=== PATIENT | male | born 1950 | race Caucasian/White ===

== ENCOUNTER 2025-05-19 13:15 | Inpatient (IN) | payer OTHER, MEDICARE ==
[~2025-05-19] VITALS: Ht 165.1 cm; Wt 99.8 kg
[~2025-05-19 13:15] MED LIST: CLOP75TA15 PO; ROSU10TA2 PO; VERA180T25 PO
[2025-05-19] MEDS: Magnesium 1GM/D5W 100ML PREMIX 200 ML IV ONE (13:30)
[2025-05-19] MEDS ORDERED: ALBUTEROL FS 2.5 MG/3 ML VIAL.NEB ONE (13:32)
[2025-05-19] MEDS ORDERED: IPRATROPIUM NEB FS 0.5 MG/2.5 ML AMPUL.NEB ONE (13:32)
[2025-05-19 13:36] VITALS: O2SAT 94
[2025-05-19] MEDS: ALBUTEROL FS 2.5 MG/3 ML VIAL.NEB NEB ONE (13:36)
[2025-05-19] MEDS: IPRATROPIUM NEB FS 0.5 MG/2.5 ML AMPUL.NEB NEB ONE (13:36)
[2025-05-19 13:46] LABS: PLATELET COUNT (AUTO) 235 K/uL (150-450); RED BLOOD CELL COUNT(AUTO) 4.03 MIL/uL (4.5-6.0); RED CELL DISTRIBUTION WIDTH 12.4 % (11.5-15.0); WHITE BLOOD COUNT (AUTO) 10.6 K/uL (4.3-11.0)
[2025-05-19 13:54] VITALS: O2SAT 98
[2025-05-19] MEDS ORDERED: Magnesium 1GM/D5W 100ML PREMIX 200 ML IV ONE (13:55)
[2025-05-19 14:00] LABS: CALCIUM, SERUM 8.8 mg/dL (8.5-10.1); CREATININE 2.1 mg/dL (0.6-1.3); SODIUM SERUM 145 mmol/L (136-145); UREA NITROGEN, BLOOD 27 mg/dL (7-18)
[2025-05-19] MEDS ORDERED: DEXL30CA3 PO (14:07)
[2025-05-19] MEDS ORDERED: ERGO500040 PO (14:07)
[2025-05-19] MEDS ORDERED: FLUT1DIS3 IH (14:07)
[2025-05-19] MEDS ORDERED: METO25TA6 PO (14:07)
[2025-05-19] MEDS ORDERED: MONT10TA22 PO (14:07)
[2025-05-19] MEDS ORDERED: TAMS-12 PO (14:07)
[2025-05-19] MEDS ORDERED: INSU3INS8 SQ (14:07)
[2025-05-19] MEDS ORDERED: FURO-144 PO (14:07)
[2025-05-19] MEDS ORDERED: CLON0.2T PO (14:07)
[2025-05-19] MEDS ORDERED: METF-440 PO (14:07)
[2025-05-19] MEDS ORDERED: HYDR-4075 PO (14:07)
[2025-05-19] MEDS ORDERED: FLUT16SP NS (14:07)
[2025-05-19] MEDS ORDERED: IBUP-1953 PO (14:07)
[2025-05-19 14:10] LABS: LACTIC ACID 2.4 mmol/L (0.4-2.0)
[2025-05-19] MEDS: CEFTRIAXONE 1 G in IV D5W 50 ML IV ONE (14:30)
[2025-05-19] MEDS: IV NS 0.9% 1,000 ML BAG IV ONE (14:30)
[2025-05-19] MEDS: AZITHROMYCIN 500 MG in IV D5W 250 ML IV ONE (15:30)
[2025-05-19] MEDS ORDERED: Z GUARD REMEDY 4 OZ OINT TP PRN ×2 (16:00→18:00)
[2025-05-19] MEDS ORDERED: MAG HYDROX/AL HYDROX/SIMETH 30 ML UDC PO PRN ×2 (16:00→18:00)
[2025-05-19] MEDS ORDERED: ONDANSETRON HCL/PF 4 MG/2 ML VIAL IVP PRN ×2 (16:00→18:00)
[2025-05-19] MEDS ORDERED: ACETAMINOPHEN 325 MG TABLET PO PRN ×2 (16:00→18:00)
[2025-05-19] MEDS ORDERED: MAGNESIUM HYDROXIDE 30 ML UDC PO PRN ×2 (16:00→18:00)
[2025-05-19] MEDS ORDERED: ENOXAPARIN SODIUM 30 MG/0.3 ML DISP.SYRIN SQ SCH (16:30)
[2025-05-19] MEDS ORDERED: DEXTROSE 50%-WATER 50 ML DISP.SYRIN IV PRN ×2 (17:00→18:00)
[2025-05-19] MEDS ORDERED: INSULIN REGULAR, HUMAN 100 UNIT/ML 3 ML VIAL SQ PRN (17:00)
[2025-05-19] MEDS ORDERED: FLUTICASONE/SALMETEROL 1 DISK IH SCH (17:00)
[2025-05-19 17:10] LABS: LACTIC ACID REFLEX 3.4 mmol/L (0.4-1.9)
[2025-05-19] MEDS ORDERED: BLOOD SUGAR DIAGNOSTIC 1 EACH STRIP IN SCH (17:30)
[2025-05-19] MEDS: ENOXAPARIN SODIUM 30 MG/0.3 ML DISP.SYRIN SQ SCH (18:53)
[2025-05-19] MEDS ORDERED: IPRATROPIUM NEB FS 0.5 MG/2.5 ML AMPUL.NEB NEB SCH (19:30)
[2025-05-19] MEDS ORDERED: LEVALBUTEROL HCL NEB 1.25 MG/0.5 ML VIAL.NEB NEB SCH (19:30)
[2025-05-19 20:00] VITALS: BP 123/73; TEMP 98.2; O2SAT 100
[2025-05-19 21:24] VITALS: O2SAT 98
[2025-05-19] MEDS: IPRATROPIUM NEB FS 0.5 MG/2.5 ML AMPUL.NEB NEB SCH (21:24)
[2025-05-19] MEDS: LEVALBUTEROL HCL NEB 1.25 MG/0.5 ML VIAL.NEB NEB SCH (21:24)
[2025-05-19] MEDS: BLOOD SUGAR DIAGNOSTIC 1 EACH STRIP IN SCH (21:54)
[2025-05-19] MEDS: INSULIN REGULAR, HUMAN 100 UNIT/ML 3 ML VIAL SQ PRN (22:02)
[2025-05-20] VITALS: BP 117/67; TEMP 98.4; O2SAT 100
[2025-05-20 04:00] VITALS: BP 104/60; TEMP 97.8; O2SAT 99
[2025-05-20] MEDS ORDERED: PANTOPRAZOLE 40 MG TABLET.DR PO SCH (07:30)
[2025-05-20 08:00] VITALS: BP 126/75; TEMP 98.1; O2SAT 99
[2025-05-20] MEDS: PANTOPRAZOLE 40 MG TABLET.DR PO SCH (08:28)
[2025-05-20] MEDS: MONTELUKAST SODIUM (10MG) 10 MG TABLET PO SCH (08:29)
[2025-05-20] MEDS: FUROSEMIDE 40 MG TABLET PO SCH (08:29)
[2025-05-20] MEDS: TAMSULOSIN 0.4 MG CAP.SR.24H PO SCH (08:29)
[2025-05-20] MEDS: CLONIDINE HCL 0.1 MG TABLET PO SCH (08:30)
[2025-05-20] MEDS: FLUTICASONE PROPIONATE 16 GM BOTTLE NS SCH (08:41)
[2025-05-20] MEDS: FLUTICASONE/VILANTEROL 1 EACH BLST.W.DEV IH SCH (08:41)
[2025-05-20 08:58] VITALS: O2SAT 90
[2025-05-20] MEDS ORDERED: TAMSULOSIN 0.4 MG CAP.SR.24H PO SCH (09:00)
[2025-05-20] MEDS ORDERED: FLUTICASONE PROPIONATE 16 GM BOTTLE NS SCH (09:00)
[2025-05-20] MEDS ORDERED: MONTELUKAST SODIUM (10MG) 10 MG TABLET PO SCH (09:00)
[2025-05-20] MEDS ORDERED: FUROSEMIDE 40 MG TABLET PO SCH (09:00)
[2025-05-20 09:13] VITALS: O2SAT 98
[2025-05-20 12:00] VITALS: BP 126/74; TEMP 96.1; O2SAT 98
[2025-05-20] MEDS ORDERED: AZITHROMYCIN 500 MG in IV D5W 250 ML IV SCH (14:30)
[2025-05-20] MEDS ORDERED: CEFTRIAXONE 1 G in IV D5W 50 ML IV SCH (14:30)
== END 2025-05-20 13:16 | disposition left against medical advice (07) | DRG 140 ==
LOC: ER 13:19 → TELE1 18:02
PROVIDERS: ATTEND Nurse Practitioner Acute Care
DX: J44.1 Chronic obstructive pulmonary disease with (acute) exacerbation (principal); J96.01 Acute respiratory failure with hypoxia; J15.9 Unspecified bacterial pneumonia; N17.9 Acute kidney failure, unspecified; E11.22 Type 2 diabetes mellitus with diabetic chronic kidney disease; D64.9 Anemia, unspecified; E66.01 Morbid (severe) obesity due to excess calories; E78.5 Hyperlipidemia, unspecified; J44.0 Chronic obstructive pulmonary disease with (acute) lower respiratory infection; I12.9 Hypertensive chronic kidney disease with stage 1 through stage 4 chronic kidney disease, or unspecified chronic kidney disease; N18.9 Chronic kidney disease, unspecified; F17.210 Nicotine dependence, cigarettes, uncomplicated; Z20.822 Contact with and (suspected) exposure to COVID-19; M89.8X9 Other specified disorders of bone, unspecified site; N40.0 Benign prostatic hyperplasia without lower urinary tract symptoms; Z53.29 Procedure and treatment not carried out because of patient's decision for other reasons; Z68.31 Body mass index [BMI] 31.0-31.9, adult; G47.33 Obstructive sleep apnea (adult) (pediatric); Z79.4 Long term (current) use of insulin; Z79.51 Long term (current) use of inhaled steroids; Z79.84 Long term (current) use of oral hypoglycemic drugs; Z79.899 Other long term (current) drug therapy
CPT/HCPCS: 36415; 71045-TC; 71250-TC; 76770-TC; 80048-TC; 82247-TC; 82248-TC; 82962-TC; 83605-TC; 84484-TC; 85025-TC; 87040-TC; 93307-TC; 94799-TC; 97110-TC; 97116-TC; 97530-TC; G0378; J0456; J0696; J1650; J2919; J3475; J7030; J7060